=== PATIENT | female | born 1935 | race Caucasian/White ===

== ENCOUNTER 2019-03-19 15:34 | Inpatient (IN) ==
[2019-03-19] MEDS ORDERED: DILTIAZEM 50 MG/10 ML VIAL IV STA (16:16)
[2019-03-19] MEDS: dilTIAZem Drip 125 MG/125 ML PREMIX IV SCH (16:50)
[2019-03-19 16:51] LABS: Basophils # 0.1 10*3/uL (0.0-0.2); Basophils % 0.7 % (0.0-0.8); Eosinophils # 0.1 10*3/uL (0.0-0.87); Eosinophils % 1.8 % (0.00-10.9); Hematocrit 45.5 VOL% (35.7-47.0); Hemoglobin 14.3 GM/DL (12.0-16.0); Immature Granulocytes % 0.3 %; Immature Granulocytes Absolute 0.02 #; Lymphocytes % 27.2 % (21.3-54.2); Mean Corpuscular HGB Conc 31.4 GM/DL (32-36); Mean Corpuscular Volume 89.2 FL (87-102); Mean Platelet Volume 9.6 FL (9.6-12.0); Monocytes % 9.6 % (1.7-12.7); Neutrophils % 60.4 % (38.7-73.9); Platelet Count 236 T/CUMM (130-400); White Blood Count 7.3 T/CUMM (4-12)
[2019-03-19 17:13] LABS: INR 0.9; PT Patient Result 10.2 SECS; Partial Thromboplastin Time 23.8 SECS (0-40)
[2019-03-19 17:26] LABS: Albumin 3.9 G/DL (3.4-5.0); Bilirubin,Total 0.7 MG/DL (0.2-1.0); Calcium 8.9 MG/DL (8.5-10.1); Osmolality,Calculated 286.3 MOS/KG (273-304); Thyroid Stimulating Hormone 0.256 uIU/ml (0.358-3.74); Total Protein 7.6 G/DL (6.4-8.3)
[2019-03-19] MEDS ORDERED: DIGOXIN 0.5 MG/2 ML AMP IV STA (18:18)
[2019-03-19 19:54] LABS: Apearance,Urine CLEAR (Clear); Bilirubin,Urine Negative (Negative); Blood, Urine Negative (Negative); Glucose,Urine (UA) 50 mg/dL (Negative); Ketones,Urine Negative (Negative); Mucus,Urine Occasional /LPF (Occasional); Nitrite,Urine Negative (Negative); Protein,Urine Negative; RBC,Urine <1 /HPF (0-4); Squamous Epithelial Cell,Urine Occasional /HPF (0-10); Urine Color Yellow (Yellow); Urine Specific Gravity 1.012 (1.001-1.035); Urine Urobilinogen < 2.0 EU/DL (0.2-1.0); WBC,Urine <1 /HPF (0-6)
[2019-03-19 19:59] LABS: Barbiturates Screen,Urine Negative (Negative); Benzodiazepines Screen,Urine Negative (Negative); Cannabinoid Screen,Urine Negative (Negative); Opiate Screen,Urine Negative (Negative); Phencyclidine Screen,Urine Negative (Negative)
[2019-03-19] MEDS ORDERED: ONDANSETRON 4 MG/2 ML VIAL IV PRN (21:01)
[2019-03-19] MEDS ORDERED: CARVEDILOL 12.5 MG TABLET PO STA (21:01)
[2019-03-19] MEDS ORDERED: GLUCAGON 1 MG VIAL IM PRN (21:01)
[2019-03-19] MEDS ORDERED: DEXTROSE 50% 25 GM/50 ML VIAL IV PRN (21:01)
[2019-03-19] MEDS: ENOXAPARIN 60 MG/0.6 ML SYRINGE SUBCUT SCH (22:09)
[2019-03-19] MEDS: INSULIN LISPRO 100 UNIT/ML SUBCUT SCH (22:09)
[2019-03-19] MEDS: SIMVASTATIN 10 MG TABLET PO SCH (23:18)
[2019-03-20] MEDS: dilTIAZem Drip 125 MG/125 ML PREMIX IV SCH ×2 (02:22→17:29)
[2019-03-20 04:43] LABS: Osmolality,Calculated 289.8 MOS/KG (273-304)
[2019-03-20] MEDS: LEVOTHYROXINE 125 MCG TABLET PO SCH (06:12)
[2019-03-20] MEDS: INSULIN LISPRO 100 UNIT/ML SUBCUT SCH ×4 (08:41→21:03)
[2019-03-20] MEDS: CHOLECALCIFEROL 400 UNIT TABLET PO SCH (09:41)
[2019-03-20] MEDS: EZETIMIBE 10 MG TABLET PO SCH (09:41)
[2019-03-20] MEDS: CYANOCOBALAMIN 500 MCG TABLET PO SCH (09:41)
[2019-03-20] MEDS: METOPROLOL SUCCINATE XL 100 MG TABLET PO SCH (09:42)
[2019-03-20] MEDS: ENOXAPARIN 60 MG/0.6 ML SYRINGE SUBCUT SCH (09:42)
[2019-03-20] MEDS: LOSARTAN 50 MG TABLET PO SCH (09:42)
[2019-03-20] MEDS: PANTOPRAZOLE 40 MG TABLET PO SCH (09:42)
[2019-03-20] MEDS: APIXABAN 5 MG TABLET PO SCH ×2 (11:27→21:03)
[2019-03-20] MEDS ORDERED: MAGNESIUM SULF RIDER 2 GM in PREMIX 1 EACH IV PRN (11:29)
[2019-03-20] MEDS ORDERED: MAGNESIUM SULF RIDER 4 GM in PREMIX 1 EACH IV PRN (11:29)
[2019-03-20] MEDS: ASCORBIC ACID 500 MG TABLET PO SCH ×2 (12:19→21:03)
[2019-03-20] MEDS ORDERED: DIGOXIN 0.25 MG TABLET PO SCH (13:00)
[2019-03-20] MEDS: SIMVASTATIN 10 MG TABLET PO SCH (21:03)
[2019-03-21 05:13] LABS: Basophils # 0.1 10*3/uL (0.0-0.2); Eosinophils # 0.2 10*3/uL (0.0-0.87); Eosinophils % 2.8 % (0.00-10.9); Hematocrit 41.4 VOL% (35.7-47.0); Hemoglobin 12.9 GM/DL (12.0-16.0); Immature Granulocytes % 0.3 %; Immature Granulocytes Absolute 0.02 #; Lymphocytes # 2.3 10*3/uL (1.4-4.0); Lymphocytes % 39.1 % (21.3-54.2); Mean Corpuscular HGB Conc 31.2 GM/DL (32-36); Mean Corpuscular Volume 90.2 FL (87-102); Mean Platelet Volume 9.8 FL (9.6-12.0); Monocytes % 11.5 % (1.7-12.7); Neutrophils % 45.3 % (38.7-73.9); Platelet Count 205 T/CUMM (130-400); Red Blood Count 4.59 MC/CUMM (3.8-5.5); Red Cell Distribution Width 14.1 % (9.3-17.3)
[2019-03-21 05:43] LABS: Calcium 8.9 MG/DL (8.5-10.1); Osmolality,Calculated 286.8 MOS/KG (273-304); Osmolality,Calculated 287.8 MOS/KG (273-304)
[2019-03-21 05:45] LABS: Risk Ratio 2.91; VLDL CHOLESTEROL 33.6 MG/DL
[2019-03-21] MEDS: LEVOTHYROXINE 125 MCG TABLET PO SCH (06:11)
[2019-03-21] MEDS: INSULIN LISPRO 100 UNIT/ML SUBCUT SCH ×2 (08:28→11:55)
[2019-03-21] MEDS: EZETIMIBE 10 MG TABLET PO SCH (08:48)
[2019-03-21] MEDS: CHOLECALCIFEROL 400 UNIT TABLET PO SCH (08:48)
[2019-03-21] MEDS: ASCORBIC ACID 500 MG TABLET PO SCH (08:48)
[2019-03-21] MEDS: CYANOCOBALAMIN 500 MCG TABLET PO SCH (08:48)
[2019-03-21] MEDS: PANTOPRAZOLE 40 MG TABLET PO SCH (08:49)
[2019-03-21] MEDS: APIXABAN 5 MG TABLET PO SCH (08:49)
[2019-03-21] MEDS: METOPROLOL SUCCINATE XL 100 MG TABLET PO SCH (08:49)
[2019-03-21] MEDS: POTASSIUM CHLORIDE 20 MEQ TABLET PO PRN ×2 (08:49→10:55)
[2019-03-21] MEDS: LOSARTAN 50 MG TABLET PO SCH (08:50)
[2019-03-21] MEDS ORDERED: DILTIAZEM CD 120 MG CAPSULE PO SCH (09:30)
[2019-03-21 12:26] VITALS: BP 125/71
== END 2019-03-21 15:00 | disposition home health service (06) | DRG 310 ==
LOC: N.ED 15:34 → N.EDINP 18:08 → N.TELES 03-20 02:04
PROVIDERS: ADMIT Internal Medicine; ATTEND Internal Medicine